=== PATIENT | female | born 1965 | race Caucasian/White ===

== ENCOUNTER 2018-08-20 06:14 | Day surgery (SDC) | payer OTHER ==
[2018-08-18 11:13] VITALS: BMI 24.3
--- NOTE | 2018-08-19 17:37 | PREOP ---
DATE OF ADMISSION: 08/20/2018 PREOPERATIVE DIAGNOSIS: Chronic pansinusitis with nasal polyps and anosmia. INDICATIONS: This 52-year-old female has had a long history of chronic nasal and sinus problems. She has undergone previous endoscopic sinus surgery many years ago. She had a second procedure in 2008 with nasal polyposis and did well for many years. More recently she has developed recurrence of her polyposis. She has worsening nasal obstruction, which has required oral steroid treatment. CT scan of the paranasal sinuses demonstrates chronic pansinusitis with nasal polyps and she is now admitted for endoscopic sinus surgery. PAST MEDICAL HISTORY: Primary medical doctor is Dr. Ck Thomson. The patient does have a history of hypothyroidism. ALLERGIES: PENICILLIN. PRESENT MEDICATIONS: Include Synthroid. She has been on recent methylprednisolone. SOCIAL HISTORY: She does not smoke. PAST SURGICAL HISTORY: Includes endoscopic sinus surgery and has undergone anesthesia without problems. BLEEDING HISTORY: Negative. FAMILY HISTORY: Negative for bleeding or anesthesia problems. PHYSICAL EXAMINATION: General: The patient is a well-developed female, in no distress. HEENT: Head is normal. Eyes are clear. Ears are unremarkable. The oral cavity and oropharynx are clear. The nose has significant bilateral nasal polyposis with obstruction. Middle turbinates are edematous. Middle meatus is full of polyps as well as the sphenoethmoid recesses. The nasopharynx was clear. The remainder of her head and neck examination is unremarkable. DATA: Preoperative labs are pending. CT scan of the paranasal sinuses performed at [facility] on November 01, 2017, shows chronic pansinusitis. There is mild deviation of the septum to the right. There is evidence of prior surgery. Ethmoid cells are almost completely opacified and the sphenoid sinuses are partially opacified as well as the frontal sinuses. There is obstruction of the ostiomeatal units bilaterally as well as the frontoethmoid and sphenoethmoid recesses. Nasal polyps are present. IMPRESSION: Chronic pansinusitis with polyposis and anosmia, recurrent. PLAN: Endoscopic sinus surgery to address ethmoid, maxillary, sphenoid, and frontal sinuses with image guidance. INFORMED CONSENT: Patient understands the indications and alternatives, nature, risks, and benefits of proposed surgery, potential complications including but not limited to anesthesia, bleeding, infection, recurrence, numbness, hole in the septum, reduced smell sense, eye injury or brain injury were discussed in detail. She understands and accepts these risks and wishes to proceed with surgery. Questions answered fully. CARMELITA SRIVASTAVA M.D. KRISTEN/[id number]
[2018-08-20] MEDS ORDERED: PROPOFOL 20 ML ONE (07:10)
[2018-08-20] MEDS ORDERED: SUCCINYLCHOLINE CHLORIDE 200 MG/10 ML VIAL ONE (07:10)
[2018-08-20] MEDS ORDERED: MIDAZOLAM HCL 2 MG/2 ML SINGLE DOSE VIAL ONE (07:11)
[2018-08-20] MEDS ORDERED: DEXAMETHASONE SOD PHOSPHATE 4 MG/1 ML VIAL ONE (07:25)
[2018-08-20] MEDS ORDERED: SODIUM CHLORIDE 0.9% P/F 10 ML VIAL IJ ONE (07:25)
[2018-08-20] MEDS ORDERED: LIDOCAINE HCL/PF 2% SDV 5ML VIAL ONE ×2 (07:25→09:47)
[2018-08-20] MEDS ORDERED: ceFAZolin SODIUM 1 GM VIAL ONE (07:25)
[2018-08-20] MEDS ORDERED: ROCURONIUM BROMIDE 50 MG/5 ML VIAL ONE (07:28)
[2018-08-20] MEDS ORDERED: COCAINE HCL 4% TOPICAL SOLUTION 4 ML BOTTLE TP ONE ×3 (07:30→08:50)
[2018-08-20] MEDS ORDERED: LIDOCAINE 1%/EPI 1:100000 (20 ML MULTI DOSE VIAL) ONE (07:32)
[2018-08-20] MEDS ORDERED: BACITRACIN 15 GM TUBE TOPICAL OINTMENT ONE (07:32)
--- NOTE | 2018-08-20 07:47 | HP ---
History & Physical Update - History History: No Change - Physical Physical: No Change - Assessment Assessment: No Change - Plan Plan: No Change
[2018-08-20] MEDS ORDERED: SEVOFLURANE 250 ML BTL ONE (07:54)
[2018-08-20] MEDS ORDERED: DESFLURANE GAS 240 ML BOTTLE IH ONE (07:54)
[2018-08-20] MEDS ORDERED: CLINDAMYCIN PHOSPHATE 600 MG/4 ML VIAL ONE (07:58)
[2018-08-20] MEDS ORDERED: LIDOCAINE 1%/EPI 1:100000 (20 ML MULTI DOSE VIAL) PNB ONE (08:40)
[2018-08-20] MEDS ORDERED: ePHEDrine SULFATE 50 MG/1 ML AMPULE ONE (08:42)
[2018-08-20] MEDS ORDERED: NEOSTIGMINE METHYLSULFATE 0.5 MG/ML - 10 ML MDV ONE (08:43)
[2018-08-20] MEDS ORDERED: GLYCOPYRROLATE 0.2 MG/1 ML VIAL ONE (08:44)
[2018-08-20] MEDS ORDERED: oxyCODONE HCL 5 MG TABLET PO PRN ×2 (10:02)
[2018-08-20] MEDS ORDERED: ONDANSETRON 4 MG/2 ML VIAL IVPUSH PRN (10:02)
[2018-08-20] MEDS ORDERED: LACTATED RINGERS SOLUTION 1,000 ML IV SCH (10:15)
--- NOTE | 2018-08-20 10:20 | OP ---
Operative Note - Note: Operative Date: 08/20/18 (08700) Pre-Operative Diagnosis: chronic pansinusitis with polyposis and anosmia Operation: bilateral endoscopic:1)ethmoidectomy, anterior and posterior, 2) maxillary antrostomy with removal of tissue, 3)frontal sinus exploration, 4) sphenoidotomy, 5) image guidance Findings: chronic pansinusitis, polyposis especially ethmoid and maxillary sinuses, thick fluid left sphenoid and left frontal Post-Operative Diagnosis: Same as Pre-op Surgeon: Rashawn Perez Anesthesiologist/BOTTOMER OPERATOR: Adrian Walton Anesthesia: General Specimens Removed: left and right nasal polyps and ethmoid tissue; left and right maxillary sinus tissue Estimated Blood Loss (mls): 30 Blood Volume Replaced (mls): 0 Operative Report Dictated: Yes
--- NOTE | 2018-08-20 11:28 | OP ---
DATE OF OPERATION: 08/20/2018 PREOPERATIVE DIAGNOSIS: Chronic pansinusitis with polyposis and anosmia. POSTOPERATIVE DIAGNOSIS: Chronic pansinusitis with polyposis and anosmia. PROCEDURES: Bilateral endoscopic ethmoidectomy anterior and posterior, bilateral endoscopic maxillary antrostomy with tissue removal, bilateral endoscopic frontal sinus exploration, bilateral endoscopic sphenoidotomy, image guidance. SURGEON: Carmelita Perez MD ANESTHESIOLOGIST: Adrian Walton CRNA ANESTHESIA: General via endotracheal tube. INDICATIONS: This 52-year-old female has had a long history of chronic rhinosinusitis with polyposis. She has undergone 2 previous surgeries, the last in 2008. She has done well, but has recently developed recurrence of significant obstruction, drainage, pressure. She has failed to improve with appropriate medical therapy. Examination demonstrates marked nasal polyposis with obstruction left greater than right. CT scan demonstrates chronic pansinusitis with polyposis. She is now brought to surgery for treatment. FINDINGS: Chronic pansinusitis with extensive polyposis left greater than right. PROCEDURE: The patient was brought to the operating room and placed on the operating table in the supine position. General endotracheal anesthesia was induced to a satisfactory level and she was prepped and draped in the usual fashion for surgery. Lidocaine 1% with epinephrine 1:100,000 was infiltrated into the accessible nasal polyps. Cocaine 4% was packed in the nasal cavities. The [employer] navigation system was employed utilizing the patient's CT scan data. She was registered and image guidance was used intermittently throughout the case in order to identify anatomic location and to guide dissection. The pledgets were removed. Nasal endoscopy was performed with a 0-degree telescope. Marked nasal polyposis was found left greater than right and nasopharynx was clear. Lidocaine with epinephrine 1:100,000 was infiltrated into accessible nasal polyps as well as into visible lateral nasal wall. After appropriate time, surgery was performed on the left side first. Nasal polyps were removed with ethmoid forceps. Middle turbinate remnant was identified and preserved. Nasal polyps were also identified in the superior meatus and sphenoethmoid recess. The airway opened up nicely. Ethmoid forceps and then the [employer] microdebrider was used to perform anterior and posterior ethmoidectomy. The lamina papyracea and the fovea ethmoidalis were preserved. The sphenoethmoid recess was identified and polypoid tissue was removed. The prior sphenoidotomy was then identified and then large, thick, white mucus was suctioned from the left sphenoid sinus. There was no pus. The polyps were also removed from the superior meatus. The left maxillary sinus was then addressed. Very thick, inspissated mucus was suctioned. It was not purulent. Significant polypoid tissue was removed. This was then removed via the antrostomy with 70 and 110-degree giraffe forceps using the visualization with the 70-degree telescope. Accessible polypoid tissue was removed. Attention was finally turned toward the left frontal sinus. The curved suction and the frontal ostium seeker were utilized. Drainage pathways to a supraorbital cell were cleared. The frontal recess was then cleared of polypoid tissue and ostium patency was identified and demonstrated with the ostium seeker and image guidance. Attention was then turned to the right paranasal sinuses. Visible nasal polyps were then removed with the forceps from the ethmoid sinus and sphenoethmoid recess. Anterior and then posterior ethmoidectomy was performed with the ethmoid forceps and microdebrider. The lamina papyracea and the fovea ethmoidalis were preserved. Next, the sphenoethmoid recess was explored and the sphenoidotomy opened. Once unobstructed, the right sphenoid sinus had no active infection or polypoid disease. The right maxillary sinus was then addressed with the 70-degree telescope. A smaller amount of thick mucus was suctioned. Polypoid disease around the antrostomy was removed in order to open the antrostomy. Additional polyps were removed using the giraffe forceps from the right maxillary sinus. Finally, attention was turned to the right frontal sinus. The frontal recess was identified, cleared of obstructing tissue, and the frontal ostium identified visually and with the ostium seeker. All sinus was then opened. Mild oozing was noted particularly from the posterior ethmoid area which was controlled with electrocauterization under endoscopic vision. Nasopore dressings were then placed in the ethmoid beds. The airways were patent and there was no additional bleeding. Therefore, cotton balls were placed in the nostrils. Patient tolerated the procedure well. She was then awakened from general anesthesia and transferred to the PACU in stable condition. ESTIMATED BLOOD LOSS: 30 mL. FLUID: She received crystalloid during the procedure. SPECIMENS: Were sent to Pathology, including left nasal polyp and ethmoid tissue, right nasal polyp and ethmoid tissue, left maxillary sinus tissue, and right maxillary sinus tissue. COMPLICATIONS: There were no complications. CARMELITA PEREZ M.D. KRISTEN/[id number]
[2018-08-20 17:16] VITALS: BP 124/73; PULSE 74; TEMP 98
--- NOTE | 2018-08-22 18:13 | PATH ---
Surgical Pathology Report Patient Name: NESSA NEGRO [facility]. Rec. #: [id number] /Age/Gender: 1965 (Age: 52) / F Account: [id number] Location: [facility] SURGICAL Taken: 08/20/2018 Received: 08/20/2018 Reported: 08/22/2018 Physicians: Rashawn Perez M.D. Specimen(s) Received A: LEFT NASAL POLYP AND ETHMOID TISSUE B: LEFT MAXILLARY SINUS C: RIGHT AND LEFT ETHMOID SINUS D: RIGHT NASAL TISUSE AND ETHMOID POLYP E: RIGHT MAXILLARY SINUS TISSUE Clinical History Chronic maxillary sinus Final Diagnosis A. LEFT NASAL POLYP AND ETHMOID TISSUE, EXCISION: INFLAMMATORY POLYPS AND CHRONIC SINUSITIS. B. LEFT MAXILLARY SINUS, EXCISIONAL BIOPSY: CHRONIC SINUSITIS. C. RIGHT AND LEFT ETHMOID SINUS, EXCISIONAL BIOPSY: CHRONIC SINUSITIS. D. RIGHT NASAL TISSUE AND ETHMOID POLYP, EXCISION: INFLAMMATORY POLYPS AND CHRONIC SINUSITIS. E. RIGHT MAXILLARY SINUS TISSUE, EXCISIONAL BIOPSY: CHRONIC SINUSITIS. Comment: There is a prominent eosinophilic infiltrate in the specimens, which may indicates an allergic etiology for the inflammation. Clinical correlation recommended. Electronically Signed Rose Mejía M.D. Gross Description A. Received in formalin labeled "left nasal polyp and ethmoid tissue," are 7 ramirez, irregular to polypoid portions of soft tissue ranging from 0.7 x 0.6 x 0.2 cm to 3.0 x 1.7 x 0.3 cm. The specimens are submitted in toto in 4 cassettes. B. Received in formalin labeled "left maxillary sinus," is a 2.0 x 1.5 x 0.2 cm aggregate of ramirez soft tissue fragments. The specimen is submitted in toto in one cassette. C. Received in formalin labeled "right and left ethmoid sinus tissue" is a 0.7 x 0.5 x 0.1 cm aggregate of ramirez soft tissue fragments. The formalin is filtered and the specimen is submitted entirely in one cassette. D. Received in formalin labeled "right nasal tissue and ethmoid tissue," are 2 ramirez, polypoid portions of soft tissue measuring 1.3 x 0.8 x 0.3 cm and 2.7 x 1.1 0.5 cm. The specimens are submitted in toto in one cassette. E. Received in formalin labeled "right maxillary sinus tissue" is a 2.5 0.8 x 0.2 cm aggregate of ramirez soft tissue fragments. The specimen is submitted in toto in one cassette. 08/21/201808/21/2018
== END 2018-08-20 15:30 | disposition home or self-care (01) ==
LOC: JASU-SURG 06:14
PROVIDERS: ATTEND Otolaryngology
PROC: 09TU8ZZ Resection of Right Ethmoid Sinus, Via Natural or Artificial Opening Endoscopic (ICD-10-PCS; 2018-08-20)
PROC: 8E09XBG Computer Assisted Procedure of Head and Neck Region, With Computerized Tomography (ICD-10-PCS; 2018-08-20)
PROC: 8E09XBZ Computer Assisted Procedure of Head and Neck Region (ICD-10-PCS; 2018-08-20)
PROC: 09BV4ZZ Excision of Left Ethmoid Sinus, Percutaneous Endoscopic Approach (ICD-10-PCS; 2018-08-20)
PROC: 8E09XBG Computer Assisted Procedure of Head and Neck Region, With Computerized Tomography (ICD-10-PCS; 2018-08-20)
PROC: 09TV8ZZ Resection of Left Ethmoid Sinus, Via Natural or Artificial Opening Endoscopic (ICD-10-PCS; principal; 2018-08-20 08:00)
DX: J32.4 Chronic pansinusitis (principal); J33.9 Nasal polyp, unspecified; R43.0 Anosmia
CPT/HCPCS: 88304-TC; 88305-TC; 94760